=== PATIENT | female | born 1995 | race Caucasian/White ===

== ENCOUNTER 2019-03-07 21:24 | Emergency (ER) | payer OTHER ==
[2019-03-07 21:33] VITALS: BP 119/72; PULSE 102; TEMP 98.2; BMI 22.6
--- NOTE | 2019-03-07 21:35 | PDOC ---
Rapid Medical Evaluation Chief Complaint: Pain Time Seen by Provider: 03/07/19 21:31 Medical Evaluation: 03/07/19 21:31 I have performed a brief in-person evaluation of this patient. The patient presents with a chief complaint of: BIBA with 16wks with abdominal cramping pain since yesterday. report decreased movement. Denies vaginal bleeding Pertinent physical exam findings: A&O x 3 in mild distress holding lower abdomen I have ordered the following: abd U/S. cbc,cmp , beta hcg The patient will proceed to the ED for further evaluation. Discharge Disposition - Diagnosis Abdominal pain during Qualifiers: Trimester: second trimester Qualified Code(s): O26.892 - Other specified related conditions, second trimester - Discharge Dispostion Condition at time of disposition: Stable - Referrals - Patient Instructions - Post Discharge Activity
--- NOTE | 2019-03-07 23:10 | PDOC ---
History of Present Illness - General Chief Complaint: Pain Stated Complaint: 16 WEEKS /ABDOMINAL PAIN Time Seen by Provider: 03/07/19 21:31 History Source: Significant Other (father) Exam Limitations: Language Barrier (Citizen Of [place] only, history per father) - History of Present Illness Initial Comments: 23 yo A1 F, currently about 4 weeks , no PMH, p/w abdominal pain and not feeling baby move for 2 days. Patient Citizen Of [place] speaking only, all history per significant other. Has had some nausea w/o vomiting, but specifically denies vaginal bleeding. Pain is in lower abdomen, comes in waves. They "only want to make sure the baby is okay". Denies CP, SOB, wheezing, constipation/diarrhea, fevers/chills, vaginal bleeding. Endorse abdominal pain and nausea w/o vomiting. 03/07/19 23:05 Past History - Past Medical History Allergies/Adverse Reactions: Allergies Allergy/AdvReac Type Severity Reaction Status Date / Time No Known Allergies Allergy Verified 03/07/19 21:33 COPD: No - Suicide/Smoking/Psychosocial Hx Smoking History: Never smoked Review of Systems - Review of Systems Able to Perform ROS?: Yes Constitutional: No: Chills, Fever HEENTM: No: Eye Pain, Double Vision, Nose Pain, Throat Pain, Difficulty Swallowing, Mouth Swelling Respiratory: No: Cough, Shortness of Breath Cardiac (ROS): No: Chest Pain, Edema, Irregular Heart Rate ABD/GI: Yes: Nausea. No: Abdominal Distended, Constipated, Diarrhea, Vomiting Neurological: No: Headache, Numbness *Physical Exam - Vital Signs Last Vital Signs Temp Pulse Resp BP Pulse Ox 98.2 F 102 H 18 119/72 99 03/07/19 21:30 03/07/19 21:30 03/07/19 21:30 03/07/19 21:30 03/07/19 21:30 - Physical Exam General Appearance: Yes: Moderate Distress, Other (appears uncomfortable) HEENT: positive: EOMI, ZEB, Normal ENT Inspection, Normal Voice, Symmetrical, Pharynx Normal Neck: positive: Trachea midline, Normal Thyroid, Supple. negative: Tender Respiratory/Chest: positive: Lungs Clear, Normal Breath Sounds. negative: Chest Tender, Respiratory Distress, Accessory Muscle Use Cardiovascular: positive: Regular Rhythm, Tachycardia (110s) Gastrointestinal/Abdominal: positive: Normal Bowel Sounds, Soft. negative: Tender Musculoskeletal: positive: Normal Inspection. negative: CVA Tenderness Extremity: positive: Normal Capillary Refill Integumentary: positive: Normal Color, Dry, Warm Neurologic: positive: cutter inspector II-XII NML intact, Fully Oriented, Alert, Normal Mood/ Affect, Normal Response, Motor Strength 5/5 Medical Decision Making - Medical Decision Making F/u TVUS to determine status of baby. Also T+S, CBC, CMP, UA/UC, but patient and significant other state they just want the ultrasound results and they will go. 03/07/19 23:09 US results explained. Risks of not getting urine or blood checked explained, patient insistent that she does not want any testing. Plan to discharge home. 03/07/19 23:53 *DC/Admit/Observation/Transfer Diagnosis at time of Disposition: Abdominal pain during Qualifiers: Trimester: second trimester Qualified Code(s): O26.892 - Other specified related conditions, second trimester - Discharge Dispostion Disposition: HOME Condition at time of disposition: Guarded Decision to Admit order: No - Referrals Referrals: ON STAFF,NOT [Primary Care Provider] - - Patient Instructions Printed Discharge Instructions: DI for Abdominal Pain -- Early Additional Instructions: You were seen with abdominal pain and not feeling the baby move for two days. You refused any blood or urine tests, so we were unable to determine the cause of your pain. This could lead to some risks for you and the baby, which were explained to you. These include the risk of infection that could affect you, the baby, or both. The ultrasound showed that your fetus still has a heartbeat, and did not reveal any acute issues. Please follow up with your OBGYN for further outpatient care. Print Language: GREEK - Post Discharge Activity
--- NOTE | 2019-03-08 00:08 | PDOC ---
Documentation entered by Christy Martins SCRIBE, acting as scribe for Vanesa Flowers MD. Vanesa Flowers MD: This documentation has been prepared by the claudetteibe, Christy Martins SCRIBE, under my direction and personally reviewed by me in its entirety. I confirm that the documentation accurately reflects all work, treatment, procedures, and medical decision making performed by me. Attending Attestation - Resident Resident Name: JohnsonDawitbibiana - ED Attending Attestation I have performed the following: I have examined & evaluated the patient, The case was reviewed & discussed with the resident, I agree w/resident's findings & plan, Exceptions are as noted - HPI HPI: 03/07/19 23:51 The patient is a 23-year-old female, , 16 weeks , who presents to the ED with 2 days of abdominal cramping. The patient states that she has not felt her baby move in 2 days and became worried. She reports nausea, but no vomiting. She denies any vaginal bleeding, vaginal discharge, or urinary symptoms. Patient is eating and drinking normally. She has an upcoming appointment with her COMMERCIAL ATTACHE. She denies any fever or chills. Denies chest pain, palpitations, or shortness of breath. Allergies: NKA - Physicial Exam PE: 03/07/19 23:56 GENERAL: Awake, alert, and fully oriented, in no acute distress HEAD: No signs of trauma EYES: PERRLA, EOMI, sclera anicteric, conjunctiva clear ENT: Auricles normal inspection, nares patent, oropharynx clear without exudates. Moist mucosa. NECK: Normal ROM, supple, no lymphadenopathy, JVD, or masses LUNGS: Breath sounds equal, clear to auscultation bilaterally. No wheezes, and no crackles HEART: Regular rate and rhythm, normal S1 and S2, no murmurs, rubs or gallops ABDOMEN: (+)Mild, lower suprapubic tenderness. No guarding, no rebound. No masses. No CVA tenderness. EXTREMITIES: Normal range of motion, no edema. No clubbing or cyanosis. No cords, erythema, or tenderness NEUROLOGICAL: Alert and oriented x 3. Moves all extremities. Face is symmetric. SKIN: Warm, Dry, normal turgor, no rashes or lesions noted - Medical Decision Making 03/08/19 00:06 03/08/19 00:03 38 yo F currently 16 weeks ( one prior miscarriage) here with concerns for lower abd pain. nausea. no vomiting no fever. no urinary complaints. on exam pt mild suprapbuic ttp. no rebound no guarding. recommend labs and urine pt refusing. states want to go home. had labs drawn recently. no f/c no urinary complaints. encourage to return to ED for vomiting fever or any concerns. has fu with ob/ market research coordinator in one week. 03/08/19 00:08 us with live iup FHR 130 bpm. dc home.
== END 2019-03-07 23:58 | disposition home or self-care (01) ==
LOC: JER 21:24
DX: O26.892 Other specified pregnancy related conditions, second trimester (principal); R10.30 Lower abdominal pain, unspecified; O36.8120 Decreased fetal movements, second trimester, not applicable or unspecified; Z3A.16 16 weeks gestation of pregnancy
CPT/HCPCS: 76815-TC; 99281-25

== ENCOUNTER 2019-08-07 19:50 | Inpatient (IN) | payer OTHER ==
[2019-08-07] MEDS ORDERED: AMPICILLIN - 2 GM in SODIUM CHLORIDE 100 ML IVPB ONE (20:30)
[2019-08-07] MEDS ORDERED: PROMETHAZINE HCL 25 MG/1 ML VIAL IVPB ONE (20:41)
[2019-08-07] MEDS ORDERED: BUTORPHANOL TARTRATE 1 MG/ML VIAL IVPB ONE (20:41)
[2019-08-07] MEDS: DEXTROSE 5%-LACTATED RINGERS 1,000 ML IV SCH (20:45)
--- NOTE | 2019-08-07 21:03 | HP ---
Past Medical History - Admission Chief Complaint: Labor pain History of Present Illness: 24 yo , @ 38.6 weeks gestation, EDC 08/16/19, admitted for labor pain. Upon admission she was 4cm dilated. She also admitted to spontaneous rupture of membrane. History Source: Patient Limitations to Obtaining History: No Limitations - Past Medical History ...: 1 ...Para: 0 ...EDC by [facility]: 08/16/19 - Past Surgical History Past Surgical History: Yes: None Hx Myomectomy: No Hx Transabdominal Cerclage: No - Smoking History Smoking history: Never smoked - Alcohol/Substance Use Hx Alcohol Use: No History of Substance Use: reports: None - Social History Usual Living Arrangement: Yes: With Spouse History of Recent Travel: No Home Medications - Allergies Allergies/Adverse Reactions: Allergies Allergy/AdvReac Type Severity Reaction Status Date / Time No Known Allergies Allergy Verified 03/07/19 21:33 - Home Medications Home Medications: Ambulatory Orders Vitamins (Sjr) - 1 tab PO DAILY 08/06/19 Family Medical History Family History: Unremarkable Review of Systems - Review of Systems Constitutional: reports: No Symptoms Eyes: reports: No Symptoms HENT: reports: No Symptoms Neck: reports: No Symptoms Cardiovascular: reports: No Symptoms Respiratory: reports: No Symptoms Genitourinary: reports: Pain Breasts: reports: No Symptoms Reported Musculoskeletal: reports: No Symptoms Integumentary: reports: No Symptoms Neurological: reports: No Symptoms Endocrine: reports: No Symptoms Psychiatric: reports: No Symptoms Pain Intensity: 6 Physical Exam - Maternity Constitutional: Yes: Well Nourished Eyes: Yes: Conjunctiva Clear HENT: Yes: Atraumatic Neck: Yes: Supple Cardiovascular: Yes: Regular Rate and Rhythm Lungs: Clear to auscultation - Abdominal Exam/OB Number of Fetuses: Single Presentation: Vertex Contractions: Yes Intensity: Moderate - Vaginal Exam/OB Vaginal Bleediing: No Dilatation (cm): 4 Effacement (%): 90 Amniotic Membrane Status: Leaking Presentation: Vertex/Position Station: -2 - Physical Exam Musculoskeletal: Yes: WNL Extremities: Yes: WNL ...Motor Strength: WNL Psychiatric: Yes: Alert, Oriented Problem List - Problems (1) 39 weeks gestation of Problems reviewed: Yes Code(s): Z3A.39 - 39 WEEKS GESTATION OF Assessment/Plan 38 weeks gestation SROM Admit to L&D Analgesia as needed Anticipate
[2019-08-07] MEDS ORDERED: AMPICILLIN SODIUM 2 GM VIAL ONE (21:16)
[2019-08-07 21:24] LABS: BASO % 0.2 % (0-2.0); EOS % 0.6 % (0-4.5); HEMATOCRIT 42.2 % (32.4-45.2); HEMOGLOBIN 13.8 GM/dL (10.7-15.3); LYMPH % 19.4 % (8-40); MCH 30.9 pg (25.7-33.7); MCHC 32.7 g/dl (32.0-36.0); MEAN CELL VOLUME 94.5 fl (80-96); MEAN PLT VOLUME 8.2 fl (7.5-11.1); MONO % 8.5 % (3.8-10.2); NEUT % 71.3 % (42.8-82.8); PLATELET COUNT 222 K/MM3 (134-434); RBC 4.46 M/mm3 (3.60-5.2); RDW 13.3 % (11.6-15.6); WHITE BLOOD COUNT 12.1 K/mm3 (4.0-10.0)
[2019-08-07 21:37] LABS: INR 0.92 (0.83-1.09); PROTHROMBIN TIME (PATIENT) 10.8 SEC (9.7-13.0)
[2019-08-07] MEDS ORDERED: FENTANYL/BUPIVACAINE/NS/PF - PCEA - 50 ML DISP.SYRIN EP ONE (21:38)
[2019-08-07 21:40] LABS: ACTIVATED PTT 28.3 SECONDS (25.2-36.5)
[2019-08-07 21:50] LABS: BLOOD UREA NITROGEN 11.4 mg/dL (7-18); CALCIUM 8.5 mg/dL (8.5-10.1); CREATININE 0.7 mg/dL (0.55-1.3); POTASSIUM 3.8 mmol/L (3.5-5.1)
[2019-08-07] MEDS ORDERED: ELECTROLYTE-148 SOLN 500 ML IV ONE (22:00)
[2019-08-07] MEDS ORDERED: NALOXONE HCL 0.4 MG/ML VIAL IVPUSH PRN (22:20)
[2019-08-07] MEDS ORDERED: FENTANYL/BUPIVACAINE/NS/PF - PCEA - 50 ML DISP.SYRIN EP SCH (22:30)
[2019-08-08] MEDS ORDERED: AMPICILLIN SODIUM 1 GM VIAL ONE (00:27)
[2019-08-08] MEDS ORDERED: OXYTOCIN 20 UNITS in 0.9% NS 20 UNIT/1,000 ML INFUS.BAG IV ONE (00:27)
[2019-08-08] MEDS ORDERED: OXYTOCIN 30 UNITS in 0.9% NS 30 UNIT/500 ML INFUS.BAG IVPB ONE (00:27)
[2019-08-08] MEDS ORDERED: LIDOCAINE HCL 1% PRESERVATIVE FREE - 30ML VIAL ONE ×2 (00:28→06:24)
[2019-08-08] MEDS: AMPICILLIN - 1 GM in SODIUM CHLORIDE 100 ML IVPB SCH ×2 (00:30→07:12)
[2019-08-08] MEDS: OXYTOCIN 30 UNITS in 0.9% NS 30 UNIT/500 ML INFUS.BAG IVPB SCH ×2 (01:00→21:31)
[2019-08-08] MEDS ORDERED: BENZOCAINE 20% 57 GM BOTTLE TP PRN (03:01)
[2019-08-08] MEDS ORDERED: WITCH HAZEL 50% (TUCKS) 40 PAD/JAR PAD TP PRN (03:01)
[2019-08-08] MEDS ORDERED: BISACODYL 10 MG SUPP.RECT RC PRN (03:01)
[2019-08-08] MEDS ORDERED: METHYLERGONOVINE MALEATE 0.2 MG/1 ML AMP IM PRN (03:01)
[2019-08-08] MEDS ORDERED: BENZOCAINE 28 GM HEMORRHOIDAL OINTMENT TP PRN (03:01)
--- NOTE | 2019-08-08 03:05 | PN ---
Delivery - Delivery Vaginal Delivery: Spontaneous Type of Anesthesia: Epidural Episiotomy/Laceration: None EBL (cc): 300 Remarks - Remarks Remarks: Normal spontaneous vaginal delivery of a live infant boy over intact perineum. Nose / Oropharynx suctioned @ perineum. Cord clamped and cut. Baby handed to nurse. Placenta expelled spontaneously intact.
[2019-08-08] MEDS ORDERED: OXYTOCIN 20 UNITS in 0.9% NS 20 UNIT/1,000 ML INFUS.BAG IV SCH (03:15)
[2019-08-08 04:15] VITALS: BMI 28.3
[2019-08-08] MEDS: ACETAMINOPHEN 325 MG TABLET (FP) PO PRN ×2 (04:30→20:17)
[2019-08-08] MEDS: IBUPROFEN 600 MG TABLET (FP) PO PRN ×2 (04:30→20:17)
[2019-08-08] MEDS ORDERED: IBUPROFEN 600 MG TABLET (FP) PO ONE (04:46)
[2019-08-08] MEDS ORDERED: ACETAMINOPHEN 325 MG TABLET (FP) ONE (04:47)
[2019-08-08] MEDS: FERROUS SO4 325 MG TABLET (FP) PO SCH ×2 (09:12→21:29)
[2019-08-08] MEDS: PRENATAL VITAMINS W/ FOLIC ACID TABLET (FP) PO SCH (09:12)
[2019-08-08] MEDS: DEXTROSE 5%-LACTATED RINGERS 1,000 ML IV SCH (21:31)
[2019-08-09 08:23] LABS: BASO % 0.2 % (0-2.0); EOS % 1.1 % (0-4.5); HEMATOCRIT 36.1 % (32.4-45.2); HEMOGLOBIN 12.2 GM/dL (10.7-15.3); LYMPH % 18.3 % (8-40); MCH 31.6 pg (25.7-33.7); MCHC 33.7 g/dl (32.0-36.0); MEAN CELL VOLUME 93.7 fl (80-96); MEAN PLT VOLUME 8.1 fl (7.5-11.1); MONO % 6.7 % (3.8-10.2); NEUT % 73.7 % (42.8-82.8); PLATELET COUNT 171 K/MM3 (134-434); RBC 3.85 M/mm3 (3.60-5.2); RDW 13.3 % (11.6-15.6); WHITE BLOOD COUNT 13.8 K/mm3 (4.0-10.0)
[2019-08-09] MEDS: PRENATAL VITAMINS W/ FOLIC ACID TABLET (FP) PO SCH (09:11)
[2019-08-09] MEDS: FERROUS SO4 325 MG TABLET (FP) PO SCH ×2 (09:11→21:09)
[2019-08-09] MEDS: IBUPROFEN 600 MG TABLET (FP) PO PRN ×2 (09:15→21:33)
[2019-08-09] MEDS: ACETAMINOPHEN 325 MG TABLET (FP) PO PRN ×2 (09:15→21:32)
[2019-08-09] MEDS ORDERED: SENNOSIDES/DOCUSATE COMBO (SENNA PLUS) TABLET (UD) PO PRN (22:00)
--- NOTE | 2019-08-09 23:10 | PN ---
Post Note - Post Date of Delivery: 08/08/19 Vital Signs: Vital Signs - 24 hr 08/09/19 08/09/19 08/09/19 01:00 07:40 22:00 Temperature 97.6 F 97.6 F 98.6 F Pulse Rate 87 73 92 H Respiratory 18 18 18 Rate Blood Pressure 108/64 107/54 L 107/62 Labs: Laboratory Results - last 24 hr 08/09/19 07:33 WBC 13.8 H RBC 3.85 Hgb 12.2 Hct 36.1 MCV 93.7 MCH 31.6 MCHC 33.7 RDW 13.3 Plt Count 171 D MPV 8.1 Absolute Neuts (auto) 10.2 H Neutrophils % 73.7 Lymphocytes % 18.3 Monocytes % 6.7 Eosinophils % 1.1 D Basophils % 0.2 Nucleated RBC % 0 - Subjective Subjective: No Complaints - Objective Afebrile: Yes Breast: Not engorged Abdomen: Soft, Non-tender Uterus: Fundus firm Vagina: Scant lochia Extremities: Non-tender - Assessment/Plan (1) (normal spontaneous vaginal delivery) Assessment: S/P Normal Plan: Routine Care
[2019-08-10 09:49] VITALS: BP 120/70; PULSE 96; TEMP 98
[2019-08-10] MEDS: PRENATAL VITAMINS W/ FOLIC ACID TABLET (FP) PO SCH (10:39)
[2019-08-10] MEDS: FERROUS SO4 325 MG TABLET (FP) PO SCH (10:39)
--- NOTE | 2019-08-10 13:08 | PN ---
Post Progress Note - Subjective Subjective: Feels well. Problems nursing. Circumcision discussed. Ready to go home. Post Day: 2 (stable) Type of Delivery: Vital Signs: Vital Signs Temperature 98.0 F 08/10/19 09:47 Pulse Rate 96 H 08/10/19 09:47 Respiratory Rate 18 08/10/19 09:47 Blood Pressure 120/70 08/10/19 09:47 O2 Sat by Pulse Oximetry (%) 100 08/08/19 04:15 Breast Exam: Yes: Soft Uterus: Yes: Fundus Firm Abdomen/GI: Yes: Abdomen soft Lochia: Yes: Rubra (mild) Lochia, amount: Small Extremities: Yes: Calves non-tender Perineum: Yes: Intact Activity: Ambulating - Labs Labs: CBC WBC 13.8 K/mm3 (4.0-10.0) H 08/09/19 07:33 RBC 3.85 M/mm3 (3.60-5.2) 08/09/19 07:33 Hgb 12.2 GM/dL (10.7-15.3) 08/09/19 07:33 Hct 36.1 % (32.4-45.2) 08/09/19 07:33 MCV 93.7 fl (80-96) 08/09/19 07:33 MCH 31.6 pg (25.7-33.7) 08/09/19 07:33 MCHC 33.7 g/dl (32.0-36.0) 08/09/19 07:33 RDW 13.3 % (11.6-15.6) 08/09/19 07:33 Plt Count 171 K/MM3 (134-434) D 08/09/19 07:33 MPV 8.1 fl (7.5-11.1) 08/09/19 07:33 Absolute Neuts (auto) 10.2 K/mm3 (1.5-8.0) H 08/09/19 07:33 Neutrophils % 73.7 % (42.8-82.8) 08/09/19 07:33 Lymphocytes % 18.3 % (8-40) 08/09/19 07:33 Monocytes % 6.7 % (3.8-10.2) 08/09/19 07:33 Eosinophils % 1.1 % (0-4.5) D 08/09/19 07:33 Basophils % 0.2 % (0-2.0) 08/09/19 07:33 Nucleated RBC % 0 % (0-0) 08/09/19 07:33 Problem List - Problems (1) (normal spontaneous vaginal delivery) Code(s): O80 - ENCOUNTER FOR FULL-TERM UNCOMPLICATED DELIVERY Assessment/Plan Good recovery. Feels well. PE: WNL. Discussed nursing, circumcision. Instructions given. Discharge home.
--- NOTE | 2019-08-10 13:15 | DS ---
Physical Exam-BULK LOADER Vital Signs: Vital Signs Temperature 98.0 F 08/10/19 09:47 Pulse Rate 96 H 08/10/19 09:47 Respiratory Rate 18 08/10/19 09:47 Blood Pressure 120/70 08/10/19 09:47 O2 Sat by Pulse Oximetry (%) 100 08/08/19 04:15 Constitutional: Yes: Well Nourished, No Distress, Calm Eyes: Yes: WNL, Conjunctiva Clear, EOM Intact HENT: Yes: WNL, Atraumatic, Normocephalic Neck: Yes: WNL, Supple, Trachea Midline Cardiovascular: Yes: WNL, Regular Rate and Rhythm Respiratory: Yes: WNL, Regular, CTA Bilaterally Gastrointestinal: Yes: WNL ...Rectal Exam: Yes: WNL Renal/: Yes: WNL Breast(s): Yes: WNL Musculoskeletal: Yes: WNL Extremities: Yes: WNL Integumentary: Yes: WNL Neurological: Yes: WNL, Alert, Oriented ...Motor Strength: WNL Psychiatric: Yes: WNL, Alert, Oriented Labs: CBC, BMP 08/09/19 07:33 08/07/19 20:40 Delivery - Delivery Vaginal Delivery: Spontaneous Type of Anesthesia: Epidural Episiotomy/Laceration: None EBL (cc): 300 Delivery, Single - Stages of Labor Date 1st Stage Initiatied: 08/07/19 Time 1st Stage Initiated: 18:00 Date 2nd Stage Initiated: 08/08/19 Time 2nd Stage Initiated: 02:20 Date of Delivery: 08/08/19 Time of Delivery: 02:48 Time Placenta Delivered: 02:50 - Condition of Asbestos Removal Supervisor/Sewing Machine Adjuster Present: No Infant Gender: Male Weight: 7 lb 2 oz Position: Right, OA Total Hours ROM (Hrs/Mins): 8H48M - 1 Minute Total Score: 8 5 Minutes Total Score: 9 - Feeding Plan Initial Plan: Elected not to breastfeed exclusively throughout hospitalization Remarks - Remarks Remarks: Well Discharge Summary Reason For Visit: ADMISSION Current Active Problems 39 weeks gestation of (Acute) (normal spontaneous vaginal delivery) (Acute) Condition: Stable - Instructions Diet, Activity, Other Instructions: regular Referrals: Lovely Celeste MD [Staff Physician] - Disposition: HOME - Home Medications Comprehensive Discharge Medication List: Ambulatory Orders Vitamins (Sjr) - 1 tab PO DAILY 08/06/19
== END 2019-08-10 14:45 | disposition home or self-care (01) | DRG 560 ==
LOC: JLDR 19:50 → J3W 08-08 05:17
PROVIDERS: ADMIT Obstetrics & Gynecology; ATTEND Obstetrics & Gynecology
PROC: 10E0XZZ Delivery of Products of Conception, External Approach (ICD-10-PCS; principal; 2019-08-08)
DX: O80 Encounter for full-term uncomplicated delivery (principal); Z3A.38 38 weeks gestation of pregnancy; Z37.0 Single live birth
CPT/HCPCS: 36415; 59409; 80048; 85025; 85610; 85730; 86593; 86850; 86900; 86901; 87389